=== PATIENT | male | born 1960 | race Caucasian/White ===

== ENCOUNTER → 2016-09-11 | Outpatient (CLI) | payer OTHER ==
[~2016-09-11] MED LIST: ASPEC81 PO; ATOR-22 PO; EFAVTAB PO; METO25TA56 PO; WARF3TAB6 PO
[2016-09-11 12:04] LABS: BASO % 0.2 %; BASO ABS # 0.02 K/uL (0-0.2); COMPLETE YES; EOS % 3.1 %; HEMATOCRIT 43.8 % (42-52); IG% 0.1 %; LYMPH % 28.8 %; LYMPH ABS # 2.42 K/uL (1.2-3.4); MEAN CELL VOLUME 93.8 fL (80-100); MEAN CORPUSCULAR HEMOGLOBIN 33.4 pg (25-34); MEAN CORPUSCULAR HGB CONC 35.6 g/dl (32-36); MEAN PLATELET VOLUME 10.1 fL (7.4-10.4); MONO % 6.9 %; NEUT % 60.9 %; PLATELET COUNT 273 K/uL (130-400); RED BLOOD COUNT 4.67 M/uL (4.7-6.1); WHITE BLOOD COUNT 8.41 K/uL (4.8-10.8)
[2016-09-11 12:33] LABS: ALT/SGPT 33 U/L (12-78); BLOOD UREA NITROGEN 16 mg/dl (7-18); BUN/CREATININE RATIO 13.6 (10-20); CALCIUM 8.6 mg/dl (8.5-10.1); CARBON DIOXIDE 24 mmol/L (21-32); CHLORIDE 104 mmol/L (98-107); CHOLESTEROL 162 mg/dl (0-200); GLUCOSE 88 mg/dl (70-99); POTASSIUM 4.1 mmol/L (3.5-5.1); SODIUM 138 mmol/L (136-145); TRIGLYCERIDES 205 mg/dl (0-150); VERY LOW DENSITY LIPOPROT CALC 41 mg/dl
[2016-09-11 12:38] LABS: ALB/GLOB RATIO 1.1 (0.9-2); ALKALINE PHOSPHATASE 196 U/L (45-117); AST/SGOT 27 U/L (15-37); CHOLESTEROL/HDL RATIO 2.5; HDL CHOLESTEROL 65 mg/dl; LDL CHOLESTEROL CALCULATED 56 mg/dl
[2016-09-15 16:28] LABS: LSP % CELLS ANALYZED CD4 34 % (30-61); LSP ABSOLUTE CT CD4 816 cells/uL (490-1740); LSP LYMPHOCYTES ABSOLUTE 2390 cells/uL (850-3900)
== END | disposition home or self-care (01) ==
LOC: C.LAB1850 10:39
PROVIDERS: ATTEND Internal Medicine Infectious Disease
DX: B20 Human immunodeficiency virus [HIV] disease (principal)

== ENCOUNTER → 2017-02-28 | Outpatient (CLI) | payer OTHER ==
[2017-02-28 11:49] LABS: BASO % 0.4 %; BASO ABS # 0.03 K/uL (0-0.2); COMPLETE YES; EOS % 1.6 %; HEMATOCRIT 46.7 % (42-52); IG% 0.1 %; LYMPH % 26.5 %; MEAN CELL VOLUME 96.5 fL (80-100); MEAN CORPUSCULAR HEMOGLOBIN 32.6 pg (25-34); MEAN CORPUSCULAR HGB CONC 33.8 g/dl (32-36); MEAN PLATELET VOLUME 9.4 fL (7.4-10.4); MONO % 6.7 %; NEUT % 64.7 %; PLATELET COUNT 296 K/uL (130-400); RED BLOOD COUNT 4.84 M/uL (4.7-6.1); WHITE BLOOD COUNT 7.56 K/uL (4.8-10.8)
[2017-02-28 12:13] LABS: ALT/SGPT 32 U/L (12-78); BLOOD UREA NITROGEN 11 mg/dl (7-18); BUN/CREATININE RATIO 8.5 (10-20); CALCIUM 9.3 mg/dl (8.5-10.1); CARBON DIOXIDE 28 mmol/L (21-32); CHLORIDE 107 mmol/L (98-107); CHOLESTEROL 163 mg/dl (0-200); GLUCOSE 101 mg/dl (70-99); POTASSIUM 4.5 mmol/L (3.5-5.1); SODIUM 138 mmol/L (136-145)
[2017-02-28 12:16] LABS: ALKALINE PHOSPHATASE 188 U/L (45-117); AST/SGOT 25 U/L (15-37); CHOLESTEROL/HDL RATIO 2.4; HDL CHOLESTEROL 69 mg/dl; LDL CHOLESTEROL CALCULATED 71 mg/dl; TRIGLYCERIDES 115 mg/dl (0-150); VERY LOW DENSITY LIPOPROT CALC 23 mg/dl
[2017-03-03 17:31] LABS: LSP % CELLS ANALYZED CD4 39 % (30-61); LSP ABSOLUTE CT CD4 698 cells/uL (490-1740); LSP LYMPHOCYTES ABSOLUTE 1803 cells/uL (850-3900)
== END | disposition home or self-care (01) ==
LOC: C.LAB 11:28
PROVIDERS: ATTEND Internal Medicine Infectious Disease
DX: B20 Human immunodeficiency virus [HIV] disease (principal)

== ENCOUNTER 2017-09-23 09:22 | Emergency (ER) | payer OTHER ==
[~2017-09-23] VITALS: Ht 185.4 cm; Wt 66.9 kg
[2017-09-23 09:28] VITALS: Ht 185.4 cm; Wt 66.9 kg
[2017-09-23 10:19] LABS: HEMATOCRIT 45.2 % (42-52); HEMOGLOBIN 15.8 g/dL (14.0-18.0); MEAN CELL VOLUME 94.4 fL (80-100); MEAN PLATELET VOLUME 9.4 fL (7.4-10.4); PLATELET COUNT 238 K/uL (130-400); RED CELL DISTRIBUTION WIDTH CV 13.3 % (11.5-14.5); RED CELL DISTRIBUTION WIDTH SD 46.3 fL (36.4-46.3)
[2017-09-23] MEDS ORDERED: LANS30CA12 PO (10:24)
[2017-09-23] MEDS ORDERED: LSN25 PO (10:24)
[2017-09-23] MEDS ORDERED: METO25TA56 PO (10:24)
[2017-09-23] MEDS ORDERED: ASPI81TA28 PO (10:25)
--- NOTE | 2017-09-23 10:35 | EMERGENCY ROOM VISIT NOTE ---
History Report prepared by Jose Eduardo: Chai Olmstead Under the Supervision of: Dr. Eric Medina M.D. First contact with patient: 10:06 Chief Complaint: KIDNEY STONE Stated Complaint: KIDNEY STONE History of Present Illness The patient is a 56 year old white male with a past medical history of HIV, a past kidney stone, and past DVT's who presents to the ED with a cc of persistent urinary burning beginning two days ago. Negative recent trauma, back pain, or sexual intercourse. A couple of days ago, the patient noticed that every time he urinated, he felt a burning sensation. While getting his blood levels checked this morning, he mentioned his urinary symptoms and was referred to the ER. He has been taking Atripla for quite some time now without any complications or problems. His last viral load was undetectable. His is also on Coumadin. Source of History: patient Onset: two days ago Position: other () Symptom Intensity: moderate Quality: other (Urinary burning) Timing: constant Modifying Factors (Worsening): urination Associated Symptoms: No back pain Review of Systems See HPI for pertinent positives and negatives. A total of ten systems were reviewed and were otherwise negative. Past Medical & Surgical Medical Problems: (1) DVT (deep venous thrombosis) (2) HIV (human immunodeficiency virus infection) Family History Patient reports no known family medical history. Social History Smoking Status: Current Every Day Smoker Smokeless Tobacco Use: No Drug Use: none Marital Status: single Current/Historical Medications Scheduled Aspirin (Aspirin Ec), 81 MG PO DAILY Atorvastatin (Lipitor), 20 MG PO HS Wavfisfiv-Epakgozdwiqgb-Mbgfsu (Atripla), 1,100 MG PO QAM Lansoprazole (Prevacid), 30 MG PO DAILY Lisinopril (Lisinopril), 2.5 MG PO DAILY Metoprolol Tartrate (Lopressor) (Lopressor), 25 MG PO DAILY Tamsulosin Hcl (Flomax), 0.4 MG PO DAILY Tramadol Hcl (Ultram), 50 MG PO Q8H Warfarin Sod (Jantoven), 3 MG PO DAILY@16 Allergies Coded Allergies: Penicillins (Verified Allergy, Unknown, RASH ALL OVER, 09/23/17) Sulfa Drugs (Verified Allergy, Unknown, UNKNOWN, 09/23/17) Physical Exam Vital Signs Date Time Temp Pulse Resp B/P (MAP) Pulse Ox O2 Delivery O2 Flow Rate FiO2 09/23/17 13:52 36.5 61 20 121/67 100 18 13:48 61 20 121/67 100 Room Air 09/23/17 12:50 61 20 124/67 100 Room Air 09/23/17 11:59 64 20 121/66 100 Room Air 09/23/17 09:28 36.5 72 18 122/79 97 Room Air Physical Exam GENERAL: Awake, alert, well-appearing, NAD HENT: Normocephalic, atraumatic. EYES: Normal conjunctiva. Sclera non-icteric. NECK: Supple. No nuchal rigidity. FROM. RESPIRATORY: CTAB, no rhonchi, wheezing, crackles CARDIAC: RRR, no MRG ABDOMEN: Soft, NTND, BS+ : Normal circumcised external genitalia. No testicular or scrotal pain. No erythema. MSK: No chest wall TTP, no LE edema. No CVA TTP. NEURO: GCS 15, CN 2-12 intact, moves all 4s on command SKIN: No rash or jaundice noted. Medical Decision & Procedures ER Provider Diagnostic Interpretation: Radiology results as stated below per my review and radiologist interpretation: RENAL ULTRASOUND HISTORY: penile pain, h/o kidney stones COMPARISON: Abdomen and pelvis CT 06/19/2012. FINDINGS: Right kidney: 10.2 cm. No hydronephrosis. Mild cortical renal thinning. Increased cortical echogenicity. Left kidney: 11.0 cm. No hydronephrosis. Mild cortical renal thinning. Increased cortical echogenicity. Possible 5 mm stone within the lower pole of the left kidney. Bladder: No bladder wall thickening. The bilateral ureteral jets were identified. IMPRESSION: 1. Mild bilateral cortical renal thinning with increased cortical echogenicity suggestive of medical renal disease. 2. No hydronephrosis. 3. Possible 5 mm stone within the left kidney. Electronically signed by: Boy Diehl M.D. 09/23/2017 12:07 PM Dictated Date/Time: 09/23/2017 12:05 PM Laboratory Results 09/23/17 10:00 09/23/17 10:00 Test 09/23/17 09:37 09/23/17 10:00 09/23/17 12:30 Urine Color YELLOW Urine Appearance CLEAR (CLEAR) Urine pH 5.0 (4.5-7.5) Urine Specific Hunker 1.010 (1.000-1.030) Urine Protein TRACE (NEG) Urine Glucose (UA) NEG (NEG) Urine Ketones NEG (NEG) Urine Occult Blood TRACE (NEG) Urine Nitrite NEG (NEG) Urine Bilirubin NEG (NEG) Urine Urobilinogen NEG (NEG) Urine Leukocyte Esterase NEG (NEG) Urine WBC (Auto) 0 /hpf (0-5) Urine RBC (Auto) 0-4 /hpf (0-4) Urine Hyaline Casts (Auto) 0 /lpf (0-5) Urine Epithelial Cells (Auto) 0-5 /lpf (0-5) Urine Bacteria (Auto) NEG (NEG) Red Blood Count 4.79 M/uL (4.7-6.1) Mean Corpuscular Volume 94.4 fL (80-100) Mean Corpuscular Hemoglobin 33.0 pg (25-34) Mean Corpuscular Hemoglobin Concent 35.0 g/dl (32-36) RDW Standard Deviation 46.3 fL (36.4-46.3) RDW Coefficient of Variation 13.3 % (11.5-14.5) Mean Platelet Volume 9.4 fL (7.4-10.4) Anion Gap 7.0 mmol/L (3-11) Est Creatinine Clear Calc Drug Dose 66.7 ml/min Estimated GFR () 80.3 Estimated GFR (Non- 69.3 BUN/Creatinine Ratio 9.1 (10-20) Calcium Level 9.1 mg/dl (8.5-10.1) Prothrombin Time 27.5 SECONDS (9.0-12.0) Prothromb Time International Ratio 2.7 (0.9-1.1) Activated Partial Thromboplast Time 35.4 SECONDS (21.0-31.0) Partial Thromboplastin Ratio 1.4 Laboratory results reviewed by mt ED Course 1006: The patient was evaluated in room C9. A complete history and physical exam was performed. 1323: I reevaluated the patient. Discussed results and discharge instructions: He verbalized understanding and agreement. The patient is ready for discharge. Medical Decision The patient is a 56 year old white male with a past medical history of HIV and a past kidney stone who presents to the ED with a cc of persistent urinary burning beginning two days ago. Negative recent trauma, back pain, or sexual intercourse. Differential diagnosis: Etiologies such as renal colic, appendicitis, diverticulitis, mesenteric ischemia, aortic pathology, infections, inflammatory bowel disease, PUD, biliary pathology, UTI, as well as others were entertained. Patient was seen and evaluated at the bedside. Patient was complaining of some mild dysuria. Patient denies any hematuria. Patient did note that he did have a prior history of kidney stones however he passed them in the past. Patient otherwise is very well-appearing and had been seen at his regular clinic appointment. Patient's blood work is fairly unremarkable. Patient does have an INR 2.7 but does take Coumadin for prior history of DVT. This may be somewhat contributory to his hematuria. However, given the patient's prior history of kidney stone in a renal ultrasound which shows questionable kidney stone, we'll treat as such. Patient was given Flomax and told to continue Tylenol. Patient was also told if he did have persistent discomfort please try taking some tramadol. Patient was told to follow-up with his PCP as needed. Patient was deemed suitable for outpatient follow-up and treatment at this time. Patient was counseled on smoking cessation. Patient was given strict follow-up, discharge, and return precautions. All questions were answered. Patient was deemed suitable for outpatient follow-up at this time. Patient agreed with the plan of care and was safely discharged home. Medication Reconcilliation Current Medication List: was personally reviewed by me Blood Pressure Screening Patient's blood pressure: Normal blood pressure Blood pressure disposition: Did not require urgent referral Impression Primary Impression: Renal colic Additional Impressions: Hematuria Encounter for smoking cessation counseling Scribe Attestation The scribe's documentation has been prepared under my direction and personally reviewed by me in its entirety. I confirm that the note above accurately reflects all work, treatment, procedures, and medical decision making performed by me. Departure Information Dispostion Home / Self-Care Prescriptions Tramadol Hcl (ULTRAM) 50 Mg Tab 50 MG PO Q8H, #9 TAB PRN PAIN Prov: Eric Medina M.D. 09/23/17 Tamsulosin Hcl (FLOMAX) 0.4 Mg Cap 0.4 MG PO DAILY for 10 Days, #10 CAP Prov: Eric Medina M.D. 09/23/17 Referrals Hayden Baum MD (PCP) Forms HOME CARE DOCUMENTATION FORM, IMPORTANT VISIT INFORMATION Patient Instructions ED Stone Renal W Colic, My [facility] Additional Instructions Please return to the emergency department if you have worsening or recurrent symptoms not amenable to at-home treatment. Please call for a follow-up appointment with her primary care physician. Please take your medications as prescribed. If you have other concerns and/or complaints please feel free to also call your primary care physician's office or return the ED for further evaluation, management, and treatment. You may take tylenol 650 mg every 6 hours as needed for pain. Please take your Flomax in the evening. You may take tramadol as needed if the Tylenol does not help improve your pain. Beware that it is a sedating medication. Take your medications as prescribed. INR was 2.7 today. You have been examined and treated today on an emergency basis only. This is not a substitute for, or an effort to provide, complete comprehensive medical care. It is impossible to recognize and treat all injuries or illnesses in a single emergency department visit. It is therefore important that you follow up closely with [facility], your PCP, and/or your specialist(s). Call as soon as possible for an appointment. Thank you for your time and consideration. I look forward to speaking with you again soon. Please don't hesitate to call us if you have any questions. Problem Qualifiers Additional Impressions: Hematuria Hematuria type: unspecified type Qualified Codes: R31.9 - Hematuria, unspecified
[2017-09-23 10:55] LABS: CALCIUM 9.1 mg/dl (8.5-10.1); CREATININE 1.17 mg/dl (0.60-1.40)
--- NOTE | 2017-09-23 12:08 | DIAGNOSTIC IMAGING REPORT ---
RENAL ULTRASOUND HISTORY: penile pain, h/o kidney stones COMPARISON: Abdomen and pelvis CT 06/19/2012. FINDINGS: Right kidney: 10.2 cm. No hydronephrosis. Mild cortical renal thinning. Increased cortical echogenicity. Left kidney: 11.0 cm. No hydronephrosis. Mild cortical renal thinning. Increased cortical echogenicity. Possible 5 mm stone within the lower pole of the left kidney. Bladder: No bladder wall thickening. The bilateral ureteral jets were identified. IMPRESSION: 1. Mild bilateral cortical renal thinning with increased cortical echogenicity suggestive of medical renal disease. 2. No hydronephrosis. 3. Possible 5 mm stone within the left kidney. Electronically signed by: Boy Diehl M.D. 09/23/2017 12:07 PM Dictated Date/Time: 09/23/2017 12:05 PM
[2017-09-23 12:49] LABS: INR 2.7 (0.9-1.1); PTT PATIENT 35.4 SECONDS (21.0-31.0)
[2017-09-23] MEDS ORDERED: TRAM-453 PO (13:17)
[2017-09-23] MEDS ORDERED: TAMS0.4C38 PO (13:17)
[2017-09-23 13:52] VITALS: BP 121/67; PULSE 61; TEMP 36.5; O2SAT 100
== END 2017-09-23 13:53 | disposition home or self-care (01) ==
LOC: C.EDB 09:24 → C.EDC 13:53
DX: N23 Unspecified renal colic (principal); R31.9 Hematuria, unspecified; Z71.6 Tobacco abuse counseling; Z86.718 Personal history of other venous thrombosis and embolism; B20 Human immunodeficiency virus [HIV] disease; F17.210 Nicotine dependence, cigarettes, uncomplicated; Z79.82 Long term (current) use of aspirin; Z79.01 Long term (current) use of anticoagulants; Z79.899 Other long term (current) drug therapy

== ENCOUNTER 2018-01-03 16:31 | Emergency (ER) | payer OTHER ==
[~2018-01-03] VITALS: Ht 172.7 cm; Wt 64.9 kg
[~2018-01-03 16:31] MED LIST changes: -ASPEC81 PO; +ASPI81TA28 PO; +LANS30CA12 PO; +LSN25 PO
[2018-01-03 16:40] VITALS: TEMP 36.7; Ht 172.7 cm; Wt 64.9 kg
--- NOTE | 2018-01-03 16:52 | EMERGENCY ROOM VISIT NOTE ---
ED Visit Note First contact with patient: 16:44 CHIEF COMPLAINT: Tick bite HISTORY OF PRESENT ILLNESS: This patient is a 57-year-old male presents to the emergency department with a tick bite in his right upper inner thigh. He thinks that the tick was there for 2 days. He tried to remove it. He is unsure if he got the entire thing. He is unsure of his last tetanus shot. He denies any other symptoms such as fever or chills. He did not happen to see if the tick was engorged. REVIEW OF SYSTEMS: Head: No headache, injury or neck pain. A Neck: No pain , stiffness, or swelling. Neurological: No headache, new changes in mental status, vertigo, focal weakness, numbness. Gastrointestinal: No abdominal pain , blood in stools, diarrhea, loss of appetite, nausea, or vomiting. General: No fever or chills, fatigue, loss of appetite, or significant recent weight gain or loss. PMH: Cardiac disease SOCIAL HISTORY: Patient lives at home. Non-smoker, occasional alcohol use. MEDS: Personally reviewed. Please see med rec techs notes PHYSICAL EXAM: Vital Signs: Stable including blood pressure SKIN: Approximately 3 mm area of erythema with likely the remains of a tick head centralized. No bull's-eye rash noted. NEUROLOGICAL: Alert and cooperative. Sensory and motor functions grossly intact. COURSE: The patient was seen and examined. He was given an Adacel injection. After local anesthesia was administered, the tick head was gently removed. The patient tolerated the procedure well. The area was thoroughly cleansed. He was given Neosporin and a Band-Aid. Discharge instructions were reviewed, and he was discharged in good condition DIAGNOSIS: Tick bite DISCHARGE INSTRUCTIONS & TREATMENT: Please watch for signs of Lyme disease such as a large bull's-eye rash, fever, severe headache or joint pain. Please cleanse the area daily with soap and water. It is okay to leave it open to air. Please do not hesitate to return to the emergency department with any new, worsening or concerning symptoms It was a pleasure participating in your care today This chart was completed in part utilizing [employer] Voice Recognition software. Attempts were made to minimize the grammatical errors, random word insertions, pronoun errors and incomplete sentences. Any formal questions or concerns about the content, text or information contained within the body of this dictation should be directly addressed to the provider for clarification.
[2018-01-03] MEDS ORDERED: DIPHTHERIA/TETANUS/PERTUSSIS 0.5 ML SYR/VIAL IM. ONE (17:00)
[2018-01-03] MEDS ORDERED: LIDOCAINE 1% BUFFERED INJ 5 ML VIAL INFIL ONE (17:00)
[2018-01-03] MEDS ORDERED: DOXYCYCLINE HYCLATE 100 MG CAP PO STA (17:04)
--- NOTE | 2018-01-03 17:16 | EMERGENCY ROOM VISIT NOTE ---
ED Visit Note First contact with patient: 16:44 I did evaluate and examine this patient myself. I did guide management for the patient. I agree with the PA's assessment as discussed. Please see the PAs dictation for further details. The patient had a tick to his right thigh. It was removed in its entirety. There is no evidence of bull's-eye rash. He was given precautions regarding Lyme disease and told what symptoms to look out for.
[2018-01-03 17:20] VITALS: BP 122/70; PULSE 69; O2SAT 99
== END 2018-01-03 17:21 | disposition home or self-care (01) ==
LOC: C.EDB 16:33 → C.EDD 17:21
DX: S70.361A Insect bite (nonvenomous), right thigh, initial encounter (principal); W57.XXXA Bitten or stung by nonvenomous insect and other nonvenomous arthropods, initial encounter; Z23 Encounter for immunization

== ENCOUNTER 2018-03-25 12:28 | Emergency (ER) | payer OTHER ==
[~2018-03-25] VITALS: Ht 182.9 cm; Wt 63.9 kg
[2018-03-25 12:44] VITALS: BP 116/77; PULSE 77; TEMP 36.5; O2SAT 95; Ht 182.9 cm; Wt 63.9 kg
--- NOTE | 2018-03-25 20:45 | EMERGENCY ROOM VISIT NOTE ---
History First contact with patient: 12:51 Chief Complaint: RIB PAIN Stated Complaint: POSSIBLE BROKEN RIB History of Present Illness The patient is a 57 year old male who presents to the Emergency Room with complaints of a possible broken rib. The patient reports that he experienced sudden onset of pain 2 weeks ago after leaning over a railing. He felt a pop and sudden onset of pain. The patient reports that over the past 2 weeks, his symptoms were improving until 2 days ago when he reinjured the rib. He does not recall what he was doing at the time. The patient denies any shortness of breath, but reports worsening focal rib pain with deep breathing, sneezing and coughing. He denies any pain extending into the back or sternum. He rates his discomfort a 6 out of 10. Review of Systems 10 system review was performed and was negative except for pertinent positives and negatives as indicated in history of present illness Past Medical/Surgical History Medical Problems: (1) DVT (deep venous thrombosis) (2) HIV (human immunodeficiency virus infection) Family History Patient reports no known family medical history. Social History Smoking Status: Current Every Day Smoker Alcohol Use: occasionally Drug Use: none Marital Status: single Occupation Status: employed Current/Historical Medications Scheduled Aspirin (Aspirin Ec), 81 MG PO DAILY Atorvastatin (Lipitor), 20 MG PO HS Jtmilmbnc-Klpwubnqyrlga-Fjvfdh (Atripla), 1,100 MG PO QAM Lansoprazole (Prevacid), 30 MG PO DAILY Lisinopril (Lisinopril), 2.5 MG PO DAILY Metoprolol Tartrate (Lopressor) (Lopressor), 25 MG PO DAILY Warfarin Sod (Jantoven), 3 MG PO DAILY@16 Physical Exam Vital Signs Date Time Temp Pulse Resp B/P (MAP) Pulse Ox O2 Delivery O2 Flow Rate FiO2 03/25/18 12:44 36.5 77 20 116/77 95 Room Air Physical Exam CONSTITUTIONAL: Healthy and well nourished. Alert and oriented X 3 with positive affect. Patient does not appear in any acute distress. HEENT: Normocephalic, atraumatic. Pupils equal, round and reactive. NECK: Full active range of motion without discomfort. RESPIRATORY: Clear to auscultation bilaterally with no wheezing, crackles, rhonchi or stridor. The breathing worsens the patient's discomfort. CARDIOVASCULAR: Regular rate and rhythm with no murmurs, rubs or gallops. GASTROINTESTINAL: Bowel sounds present in all quadrants. Soft and nontender to palpation. MUSCULOSKELETAL: Examination shows focal tenderness over the anterolateral lower ribs. No ecchymosis, induration, erythema, subcutaneous emphysema or flail segment. Patient has similar pain over the site with AP pressure against the sternum and back. He has no worsening pain with range of motion of the shoulders. No focal tenderness to palpation through the thoracolumbar spine or posterior ribs. INTEGUMENTARY: No rash or other significant dermatologic conditions noted. HEMATOLOGIC: No ecchymosis or petechiae noted. NEUROLOGIC: No focal neurologic deficits noted. Medical Decision & Procedures ED Course Patient history and physical exam were performed. Nurse's notes were reviewed. Vital signs were reviewed and were normal. Based on patient history and physical exam findings, I explained to the patient that he likely has a rib fracture or adjacent muscle/connective tissue injury. I suspect that the patient does have a rib fracture since he was leaning over a railing and felt a pop. I also explained that even if we were to find a fracture on x-ray, it would not change plan of care. I did explain reasons to get an x-ray, especially with any concern for lung injury. The patient denies that this is the case, and with shared medical decision making, elected to defer x-rays at this time. He was encouraged to intermittently apply ice to the rib. The patient was dispensed a metered-dose inhaler with instructions for use. He was encouraged to take ibuprofen and Tylenol as needed for pain, and follow-up with his PCP as needed. The patient was happy with plan of care, voiced understanding of all discharge instructions, refused any prescription analgesics , and rated his discomfort a 4 out of 10 at the conclusion of my exam. Medical Decision See previous section Medication Reconcilliation Current Medication List: was personally reviewed by me Blood Pressure Screening Patient's blood pressure: Normal blood pressure Impression Primary Impression: Left rib fracture Departure Information Dispostion Home / Self-Care Condition GOOD Forms HOME CARE DOCUMENTATION FORM, IMPORTANT VISIT INFORMATION Patient Instructions Spirometer Incentive, My [facility], ED Fx Rib Additional Instructions Intermittently apply ice to ribs. Perform incentive spirometry exercises every 4 hours. Tylenol 1000 mg every 6-8 hours as. Follow-up with your family doctor for further management if symptoms are not progressively improving over the next few weeks. Problem Qualifiers Primary Impression: Left rib fracture Encounter type: initial encounter Rib fracture type: single rib Fracture type: closed Qualified Codes: S22.32XA - Fracture of one rib, left side, initial encounter for closed fracture
== END 2018-03-25 13:38 | disposition home or self-care (01) ==
LOC: C.EDB 12:29 → C.EDD 13:38
DX: S22.32XA Fracture of one rib, left side, initial encounter for closed fracture (principal); X58.XXXA Exposure to other specified factors, initial encounter; Z86.718 Personal history of other venous thrombosis and embolism; Z21 Asymptomatic human immunodeficiency virus [HIV] infection status; F17.210 Nicotine dependence, cigarettes, uncomplicated; Z79.82 Long term (current) use of aspirin; Z79.01 Long term (current) use of anticoagulants; Z79.899 Other long term (current) drug therapy

== ENCOUNTER → 2018-04-01 | Outpatient (CLI) | payer OTHER ==
[2018-04-01 13:14] LABS: BASO % 0.7 %; BASO ABS # 0.05 K/uL (0-0.2); EOS % 2.2 %; EOS ABS # 0.15 K/uL (0-0.5); HEMOGLOBIN 14.9 g/dL (14.0-18.0); IG# 0.01 K/uL (0.00-0.02); LYMPH % 33.1 %; LYMPH ABS # 2.26 K/uL (1.2-3.4); MEAN CELL VOLUME 96.3 fL (80-100); MEAN CORPUSCULAR HEMOGLOBIN 32.6 pg (25-34); MEAN CORPUSCULAR HGB CONC 33.9 g/dl (32-36); MEAN PLATELET VOLUME 10.1 fL (7.4-10.4); MONO % 7.3 %; NEUT % 56.6 %; NEUT ABS # 3.86 K/uL (1.4-6.5); PLATELET COUNT 279 K/uL (130-400); RED CELL DISTRIBUTION WIDTH CV 14.6 % (11.5-14.5); RED CELL DISTRIBUTION WIDTH SD 51.4 fL (36.4-46.3); WHITE BLOOD COUNT 6.83 K/uL (4.8-10.8)
[2018-04-01 14:45] LABS: ALBUMIN 3.4 gm/dl (3.4-5.0); ALKALINE PHOSPHATASE 208 U/L (45-117); ALT/SGPT 32 U/L (12-78); AST/SGOT 31 U/L (15-37); BLOOD UREA NITROGEN 11 mg/dl (7-18); CALCIUM 8.8 mg/dl (8.5-10.1); CARBON DIOXIDE 24 mmol/L (21-32); CHOLESTEROL 142 mg/dl (0-200); CREATININE 1.21 mg/dl (0.60-1.40); GLUCOSE 92 mg/dl (70-99); LDL CHOLESTEROL CALCULATED 48 mg/dl; POTASSIUM 4.3 mmol/L (3.5-5.1); SODIUM 136 mmol/L (136-145); TOTAL PROTEIN 7.2 gm/dl (6.4-8.2)
[2018-04-03 21:34] LABS: LSP % CELLS ANALYZED CD4 36 % (30-61); LSP ABSOLUTE CT CD4 894 cells/uL (490-1740)
== END | disposition home or self-care (01) ==
LOC: C.LAB1850 12:18
PROVIDERS: ATTEND Internal Medicine Infectious Disease
DX: B20 Human immunodeficiency virus [HIV] disease (principal)